=== PATIENT | male | born 1940 | race Caucasian/White ===

== ENCOUNTER 2018-01-05 18:23 | Inpatient (IN) | payer OTHER ==
[~2018-01-05] VITALS: Ht 160 cm; Wt 57.6 kg
[~2018-01-05 18:23] MED LIST: AMLODIPINE BESY10 M1 PO; ASPIR 8181 MG PO; COLACE100 MG PO; FLEXERIL10 MG PO; HYDROCODONE/ACE1 T12 PO; IBUPROFEN400 MG PO; MSC15 PO; MUCINEX600 MG PO; NIFEDIPINE ER60 MG PO; PROMETHAZI6.25 MG/5 PO; PROTONIX40 MG PO; ROBAXIN500 MG PO; THERA TABS1 TAB PO
[2018-01-05 18:36] VITALS: Ht 160 cm; Wt 57.6 kg
[2018-01-05 19:36] LABS: BASOPHIL % 0.2 % (0-2); PLATELET COUNT 215 x10^3mcL (130-400)
[2018-01-05 19:45] LABS: CARBON DIOXIDE 23.2 mmol/L (21-32); CHLORIDE SERUM 99 mmol/L (98-107); CREATININE SERUM 0.9 mg/dL (0.7-1.3); GLUCOSE SERUM 194 mg/dL (74-106); POTASSIUM SERUM 4.2 mmol/L (3.5-5.1); SODIUM SERUM 135 mmol/L (136-145)
[2018-01-05 19:51] LABS: microscopic required? YES; urine erythrocyte 3+ (NEGATIVE)
[2018-01-05 19:55] LABS: ALKALINE PHOSPHATASE 340 U/L (46-116); ALT/SGPT 18 U/L (16-63); AST/SGOT 183 U/L (15-37); BILIRUBIN TOTAL 1.16 mg/dL (0.20-1.00); TOTAL PROTEIN, SERUM 7.2 g/dL (6.4-8.2)
[2018-01-05 19:56] LABS: ALBUMIN 1.9 g/dL (3.4-5.0)
[2018-01-05 20:02] LABS: T3 TOTAL 0.59 ng/mL
[2018-01-05 20:06] LABS: FREE T4 1.38 ng/dL (0.76-1.46); FREE THYROXINE INDEX 2.5 ug/dL (1.4-4.5); T4(THYROXINE) 6.5 ug/dL (4.7-13.3)
[2018-01-05 20:10] LABS: CK-MB < 0.5 ng/mL (0-3.6); CREATINE KINASE 498 U/L (39-308)
[2018-01-05 20:12] LABS: RED CELL DISTRIBUTION WIDTH 18.9 % (11.5-14.5)
[2018-01-05 20:34] LABS: C REACTIVE PROTEIN 37.3 mg/dL (<=0.9)
[2018-01-05 20:56] LABS: ERYTHROCYTE SED RATE 101 mm/hr (0-20)
[2018-01-05 21:57] LABS: MAGNESIUM 1.7 mg/dL (1.8-2.4); PHOSPHOROUS 4.3 mg/dL (2.5-4.9)
[2018-01-05 21:59] LABS: CHOLESTEROL/HDL RATIO 1.9
[2018-01-05 22:38] VITALS: BP 117/73
[2018-01-06 05:36] VITALS: BP 126/65
[2018-01-06 06:41] LABS: PLATELET COUNT 167 x10^3mcL (130-400)
[2018-01-06 06:42] LABS: BASOPHIL % 0 % (0-2)
[2018-01-06 07:08] LABS: CALCIUM 8.8 mg/dL (8.5-10.1); CARBON DIOXIDE 22.3 mmol/L (21-32); CHLORIDE SERUM 106 mmol/L (98-107); CREATININE SERUM 0.7 mg/dL (0.7-1.3); GLUCOSE SERUM 161 mg/dL (74-106); MAGNESIUM 2.5 mg/dL (1.8-2.4); POTASSIUM SERUM 3.8 mmol/L (3.5-5.1); SODIUM SERUM 139 mmol/L (136-145)
[2018-01-06 14:43] VITALS: BP 116/70
[2018-01-06 17:55] VITALS: BP 118/72
[2018-01-06 20:59] VITALS: BP 101/63
[2018-01-07 05:58] VITALS: BP 116/70
[2018-01-07 06:48] LABS: BASOPHIL % 0.3 % (0-2); PLATELET COUNT 169 x10^3mcL (130-400)
[2018-01-07 06:56] LABS: RED CELL DISTRIBUTION WIDTH 18.7 % (11.5-14.5)
[2018-01-07 07:05] LABS: CALCIUM 8.5 mg/dL (8.5-10.1); CARBON DIOXIDE 22.5 mmol/L (21-32); CHLORIDE SERUM 103 mmol/L (98-107); CREATININE SERUM 0.5 mg/dL (0.7-1.3); GLUCOSE SERUM 105 mg/dL (74-106); POTASSIUM SERUM 3.5 mmol/L (3.5-5.1); SODIUM SERUM 135 mmol/L (136-145)
[2018-01-07 10:14] VITALS: BP 112/60
[2018-01-07 14:21] VITALS: BP 103/61
[2018-01-07 21:17] VITALS: BP 110/67
[2018-01-08 06:13] VITALS: BP 109/57
[2018-01-08 07:01] LABS: BASOPHIL % 0.3 % (0-2); PLATELET COUNT 193 x10^3mcL (130-400)
[2018-01-08 07:09] LABS: RED CELL DISTRIBUTION WIDTH 18.5 % (11.5-14.5)
[2018-01-08 07:17] LABS: CALCIUM 8.6 mg/dL (8.5-10.1); CARBON DIOXIDE 20.3 mmol/L (21-32); CHLORIDE SERUM 103 mmol/L (98-107); CREATININE SERUM 0.5 mg/dL (0.7-1.3); GLUCOSE SERUM 77 mg/dL (74-106); POTASSIUM SERUM 3.2 mmol/L (3.5-5.1); SODIUM SERUM 135 mmol/L (136-145)
[2018-01-08 09:13] VITALS: BP 109/69
[2018-01-08 13:48] VITALS: BP 117/75
[2018-01-08 16:38] VITALS: BP 118/67
[2018-01-08] MEDS ORDERED: CEL20 PO (16:40)
[2018-01-08] MEDS ORDERED: ONDANSETRON4 M3 PO (16:40)
[2018-01-08 21:50] VITALS: BP 119/72
== END 2018-01-08 22:50 | disposition hospice, home (50) | DRG 871 ==
LOC: ED 18:23 → DU 20:42
PROVIDERS: Family Medicine; Internal Medicine; Specialist
PROC: 0DJ08ZZ Inspection of Upper Intestinal Tract, Via Natural or Artificial Opening Endoscopic (ICD-10-PCS; principal; 2018-01-08 08:30)
DX: A41.9 Sepsis, unspecified organism (principal); J96.00 Acute respiratory failure, unspecified whether with hypoxia or hypercapnia; E43 Unspecified severe protein-calorie malnutrition; N17.0 Acute kidney failure with tubular necrosis; N39.0 Urinary tract infection, site not specified; C79.9 Secondary malignant neoplasm of unspecified site; C78.02 Secondary malignant neoplasm of left lung; C78.01 Secondary malignant neoplasm of right lung; J91.0 Malignant pleural effusion; R65.20 Severe sepsis without septic shock; E86.0 Dehydration; F32.9 Major depressive disorder, single episode, unspecified; R31.9 Hematuria, unspecified; R22.1 Localized swelling, mass and lump, neck; E11.65 Type 2 diabetes mellitus with hyperglycemia; M48.061 Spinal stenosis, lumbar region without neurogenic claudication; I10 Essential (primary) hypertension; N40.0 Benign prostatic hyperplasia without lower urinary tract symptoms; F10.21 Alcohol dependence, in remission; Z68.30 Body mass index [BMI] 30.0-30.9, adult; Z74.01 Bed confinement status; Z66 Do not resuscitate; Z51.5 Encounter for palliative care
CPT/HCPCS: 36600; 43235; 82962; 83880; 84439; 87804; 92610-GN; J1200; J1610; J2250; J2310; J2405; J2543; J3010; J3475; J3490; J7030; J7040; J7620; J7644; Q0092; Q0162; Q9966; Q9967